=== PATIENT | male | born 1975 | race Caucasian/White ===

== ENCOUNTER → 2021-04-07 | Outpatient (CLI) | payer BC ==
[2021-04-07 16:28] LABS: HEMATOCRIT 46.9 % (42.0-52.0); HEMOGLOBIN 15.8 g/dL (13.5-18.0); MEAN PLATELET VOLUME 9.2 fl (7.4-10.4); RED BLOOD COUNT 5.19 M/mm3 (4.20-5.60); RED CELL DISTRIBUTION WIDTH 11.9 % (11.5-14.5); WHITE BLOOD COUNT 7.7 K/mm3 (4.8-10.8)
[2021-04-07 23:32] LABS: LYME DISEASE EIA Negative (Negative)
[2021-04-08 08:12] LABS: TOXOPLASMA IGG VALUE Positive (Negative)
== END ==
LOC: LAB 16:07
DX: H30.90 Unspecified chorioretinal inflammation, unspecified eye (principal)